=== PATIENT | male | born 1975 | race African-American/Black ===

== ENCOUNTER 2020-03-11 13:05 | Emergency (ER) | payer MEDICAID ==
[~2020-03-11] VITALS: Ht 182.9 cm; Wt 113.6 kg
--- NOTE | 2020-03-11 14:27 | RAD ---
Right hip AP lateral x-rays and AP pelvis x-ray HISTORY: Right hip pain. FINDINGS: No fracture or dislocation of the right hip. There is advanced osteoarthritis with joint space narrowing and bulky bone spurs of the acetabulum and femoral head and bony sclerosis. The right proximal femoral shaft demonstrates dense cortical thickening however some of the cortex demonstrates some lucencies secondarily this could represent overlying dense periosteal ossification although the contralateral proximal femoral shaft is a similar thickened cortical appearance. Bone cyst left femoral head or bone erosion noted. No fracture of the pelvis. IMPRESSION: 1. No fracture or dislocation. 2. Advanced right hip osteoarthritis. Small bone cyst or erosion of the left femoral head. 3. Cortical thickening of the proximal right femoral shaft with some lucencies within the thickened cortex, versus dense periosteal ossification overlying the cortex. There may be similar cortical thickening of the visualized contralateral femoral shaft. Perhaps these findings represent chronic stress reaction. No stress fracture evident. Hypertrophic pulmonary osteoarthropathy would also be a consideration. These findings could be further assessed with bone scan imaging. Electronically signed by: Ag Rangel MD (03/11/2020 2:24 PM) [facility]
[2020-03-11] MEDS ORDERED: NAPR-682 PO (15:57)
--- NOTE | 2020-03-11 15:57 | PHYS DOC ---
Past Medical History Past Medical History: No Pertinent History Past Surgical History: No Surgical History Smoking Status: Current Every Day Smoker Alcohol Use: Heavy Additional Information: PT DRINKS 1/2 PINT OF HARD LIQUOR DAILY. General Adult EDM: Chief Complaint: ALCOHOL INTOXICATION HPI: HPI: Patient is a 45 year old male who was brought here by EMS from home due to right hip pain. Patient said he has chronic right hip problem. It became more painful after he fell 4 days ago. He said it is hurt when he walks. No back pain, no leg numbness or weakness. No neck pain, no headache. Patient admitted of drinking alcohol today. Review of Systems: Review of Systems: Constitutional: Denies fever or chills. [] Eyes: Denies change in visual acuity. [] HENT: Denies nasal congestion or sore throat. [] Respiratory: Denies cough or shortness of breath. [] Cardiovascular: Denies chest pain or edema. [] GI: Denies abdominal pain, nausea, vomiting, bloody stools or diarrhea. [] : Denies dysuria. [] Musculoskeletal: Denies back pain, positive for right hip pain Integument: Denies rash. [] Neurologic: Denies headache, focal weakness or sensory changes. [] Endocrine: Denies polyuria or polydipsia. [] Lymphatic: Denies swollen glands. [] Psychiatric: Denies depression or anxiety. [] Heart Score: Risk Factors: Risk Factors: DM, Current or recent (<one month) smoker, HTN, HLP, family history of CAD, obesity. Risk Scores: Score 0 - 3: 2.5% MACE over next 6 weeks - Discharge Home Score 4 - 6: 20.3% MACE over next 6 weeks - Admit for Clinical Observation Score 7 - 10: 72.7% MACE over next 6 weeks - Early Invasive Strategies Allergies: Allergies: Allergies Coded Allergies Type Severity Reaction Last Updated Verified No Known Drug Allergies 03/11/20 No Physical Exam: PE: Constitutional: Well developed, well nourished, no acute distress, non-toxic appearance. [] HENT: Normocephalic, atraumatic, bilateral external ears normal, oropharynx moist, no oral exudates, nose normal. [] Eyes: PERRLA, EOMI, conjunctiva normal, no discharge. [] Neck: Normal range of motion, no tenderness, supple, no stridor. [] Cardiovascular:Heart rate regular rhythm, no murmur [] Lungs & Thorax: Bilateral breath sounds clear to auscultation [] Abdomen: Bowel sounds normal, soft, no tenderness, no masses, no pulsatile masses. [] Skin: Warm, dry, no erythema, no rash. [] Back: No tenderness, no CVA tenderness. [] Extremities: No tenderness, no cyanosis, no clubbing, ROM intact, no edema. [] Neurologic: Alert and oriented X 3, normal motor function, normal sensory function, no focal deficits noted. [] Psychologic: Affect normal, judgement normal, mood normal. [] Current Patient Data: Vital Signs: Vital Signs Date Time Temp Pulse Resp B/P (MAP) Pulse Ox O2 Delivery O2 Flow Rate FiO2 03/11/20 13:05 98.5 84 18 115/68 (84) 93 Room Air 98.5 EKG: EKG: [] Radiology/Procedures: Radiology/Procedures: [facility] [address] [place], [place] [id number] IMAGING REPORT Signed PATIENT: DL KONG ACCOUNT: [id number] : 1975 LOCATION: ER AGE: 45 SEX: M EXAM STATUS: REG ER ORD. PHYSICIAN: JACKELYN WEBER DO REASON: right hip pain PROCEDURE: HIP RIGHT 2V WITH PELVIS Right hip AP lateral x-rays and AP pelvis x-ray HISTORY: Right hip pain. FINDINGS: No fracture or dislocation of the right hip. There is advanced osteoarthritis with joint space narrowing and bulky bone spurs of the acetabulum and femoral head and bony sclerosis. The right proximal femoral shaft demonstrates dense cortical thickening however some of the cortex demonstrates some lucencies secondarily this could represent overlying dense periosteal ossification although the contralateral proximal femoral shaft is a similar thickened cortical appearance. Bone cyst left femoral head or bone erosion noted. No fracture of the pelvis. IMPRESSION: 1. No fracture or dislocation. 2. Advanced right hip osteoarthritis. Small bone cyst or erosion of the left femoral head. 3. Cortical thickening of the proximal right femoral shaft with some lucencies within the thickened cortex, versus dense periosteal ossification overlying the cortex. There may be similar cortical thickening of the visualized contralateral femoral shaft. Perhaps these findings represent chronic stress reaction. No stress fracture evident. Hypertrophic pulmonary osteoarthropathy would also be a consideration. These findings could be further assessed with bone scan imaging. Electronically signed by: Solitario Rangel MD (03/11/2020 2:24 PM) [facility] DICTATED and SIGNED BY: SOLITARIO RANGEL MD DATE: 03/11/20 1424 [] Course & Med Decision Making: Course & Med Decision Making Pertinent Labs and Imaging studies reviewed. (See chart for details) [] Dragon Disclaimer: Dragon Disclaimer: This electronic medical record was generated, in whole or in part, using a voice recognition dictation system. Departure Departure Impression: Primary Impression: Right hip pain Disposition: HOME, SELF-CARE Condition: IMPROVED Referrals: NO PCP (PCP) Patient Instructions: Hip Pain Additional Instructions: please follow up with your family doctor for outpatient bone scan of your right hip this month. [facility] [address] [place] [address] [facility] [address] [place] [address] [facility] [address] [facility] [place] [address] [facility] [address] [place] [address] [facility] [address] [place] [address] [facility] [address] [place] [address] [facility] [address] [place] [address] [facility] [address] [place] [address] [facility] [address] [place] [address] [facility] [address] [place] [address] Scripts Naproxen Sodium (ANAPROX DS) 550 Mg Tablet 1 TAB PO BID PRN for PAIN for 15 Days, #30 TAB 0 Refills Prov: JACKELYN WEBER DO 03/11/20 Justicifation of Admission Dx: Justifications for Admission: Justification of Admission Dx: N/A JACKELYN WEBER DO Mar 11, 2020 15:57
[2020-03-11] MEDS ORDERED: IBUPROFEN 400 MG TABLET. PO ONE (16:00)
[2020-03-11 16:10] VITALS: BP 123/74
== END 2020-03-11 16:14 | disposition home or self-care (01) ==
LOC: ER 13:05
DX: M25.551 Pain in right hip (principal); G89.11 Acute pain due to trauma; F17.200 Nicotine dependence, unspecified, uncomplicated; F10.20 Alcohol dependence, uncomplicated; Y90.9 Presence of alcohol in blood, level not specified; W18.39XA Other fall on same level, initial encounter; Y93.89 Activity, other specified; Y92.89 Other specified places as the place of occurrence of the external cause; Y99.8 Other external cause status
CPT/HCPCS: 73502; 99285